=== PATIENT | female | born 1980 | race African-American/Black ===

== ENCOUNTER 2016-08-28 18:29 | Emergency (ER) | payer OTHER ==
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
[2016-08-28] MEDS ORDERED: BRINTELLIX10 M1 PO (19:20)
[2016-08-28] MEDS ORDERED: FLUOXETINE HCL40 M1 (19:20)
[2016-08-28] MEDS ORDERED: FIBER0.52 G1 (19:21)
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
[2016-08-28 22:28] VITALS: BP 120/85
== END 2016-08-28 22:40 ==
LOC: ERH 18:29
DX: S63.601A Unspecified sprain of right thumb, initial encounter (principal); S09.90XA Unspecified injury of head, initial encounter; T14.8 Other injury of unspecified body region; Y04.0XXA Assault by unarmed brawl or fight, initial encounter; Y93.89 Activity, other specified; Y92.9 Unspecified place or not applicable
CPT/HCPCS: 71100-LT